=== PATIENT | female | born 1965 | race Caucasian/White ===

== ENCOUNTER → 2017-05-14 | Outpatient (CLI) | payer BC ==
--- NOTE | 2017-05-15 09:07 | MAM ---
EXAM DESCRIPTION: 3D Screening BILATERAL CLINICAL HISTORY: 51 yearsFemaleSCREENING no complaints. No family history of breast cancer. Premenopausal.. COMPARISON: Not yet available. No prior reports available. TECHNIQUE: Bilateral CC and MLO projection full-field images, 3-D tomosynthesis digital mammographic technique. Also bilateral synthesized CC/ MLO full-field images. CAD not utilized. FINDINGS: The breast parenchymal density pattern is: Scattered areas of fibroglandular density. No skin thickening or nipple retraction bilateral solitary microcalcifications. Bilateral axillary lymph nodes. Bilateral intramammary lymph nodes. Questionable mass with partially circumscribed and partially indistinct margins in the lower outer quadrant of the middle third of the left breast at the 500 clock position. Better defined on the CC projection. 6 cm from the nipple. Questionable focal asymmetry in the 1200 clock position of the middle third of the left breast. 6 cm from the nipple o definite calcifications. No focal, stellate mass or density, focal asymmetry , and no suspicious microcalcifications right breast. IMPRESSION: BI-RADS CATEGORY: 0 - INCOMPLETE- Need prior mammograms/other imaging for comparison. FOLLOW-UP: Compare to prior breast imaging when available. Written communication concerning the IMPRESSION and Follow-up, will be mailed to the patient and referring health care provider. Electronically signed by: Quincy Sommers MD 05/15/2017 9:05 AM CDT
== END | disposition home or self-care (01) ==
LOC: MAMMO 08:29
PROVIDERS: ATTEND Family Medicine
DX: Z12.31 Encounter for screening mammogram for malignant neoplasm of breast (principal)
CPT/HCPCS: 77063; G0202

== ENCOUNTER → 2017-07-27 | Outpatient (CLI) | payer BC ==
--- NOTE | 2017-07-28 15:26 | RAD ---
EXAM DESCRIPTION: Cervical Spine,3 Views CLINICAL HISTORY: 51 years Female, CERVICOBRACHIAL SYNDROME COMPARISON: None. FINDINGS: Three views of the cervical spine demonstrate mild degenerative disc changes at C6-7 with anterior spurring and minimal disc space narrowing. Modest bilateral facet arthrosis is evident on the AP view. The odontoid is intact. Normal alignment of the spine with loss of normal lordosis is noted. IMPRESSION: Mild degenerative changes of the cervical spine. Electronically signed by: Declan Garcia MD 07/28/2017 3:25 PM [facility]
== END ==
LOC: RAD 15:22
PROVIDERS: ATTEND Chiropractor
DX: M53.1 Cervicobrachial syndrome (principal)

== ENCOUNTER → 2018-10-14 | Outpatient (CLI) | payer BC | LOC: MAMMO 11:08 | PROVIDERS: ATTEND General Practice | DX: Z12.31 Encounter for screening mammogram for malignant neoplasm of breast (principal) | CPT/HCPCS: 77063; G0202 ==

== ENCOUNTER → 2020-06-05 | Outpatient (CLI) | payer BC, OTHER ==
--- NOTE | 2020-06-07 20:53 | MAM ---
EXAM DESCRIPTION: 3D Screening BILATERAL : Digital Mammography. CLINICAL HISTORY: 54 years Female ANNUAL SCREENING .. No complaints and no family history of breast cancer. Menarche age 13. Childbirth age 19. Menopause age 52. No HRT. . Lifetime risk of developing breast cancer (Tyrer-Cuzick model)(%): 6.6. COMPARISON: Bilateral screening digital breast tomosynthesis September 2018 bilateral screening 2-D digital examination April 2017. TECHNIQUE: Bilateral CC and MLO projection full-field images, digital tomosynthesis mammographic technique. Bilateral digital 2-D full-field MLO images. CAD available for 2-D images. FINDINGS: The breast parenchymal density pattern is: Scattered areas of fibroglandular density. No skin thickening or nipple retraction. Axillary nodes. Solitary microcalcifications. Coarse calcifications. No new focal, stellate mass or density, focal asymmetry , and no suspicious microcalcifications bilaterally. Stable mammograms compared to prior study. IMPRESSION: Benign exam. BIRAD CATEGORY: 2 BENIGN FINDINGS. RECOMMENDATIONS: FOLLOW UP: Routine digital bilateral mammographic screening, one year interval from May 2020. Written communication explaining the IMPRESSION and follow-up, will be mailed to the patient and referring health care provider. According to the [employer], yearly mammograms are recommended starting at age 40 and continuing as long as a woman is in good health. Any breast change noted on a breast self-exam should be reported promptly to the patient's healthcare provider. Breast MRI is recommended for women with an approximately 20-25% or greater lifetime risk of breast cancer, including women with a strong family history of breast or ovarian cancer and women who have been treated for Hodgkin's disease. A negative mammographic report should not delay tissue diagnosis in patients with significant clinical history or physical findings. Extremely dense breast tissue limits the sensitivity of digital mammography. Electronically signed by: Quincy Sommers MD 06/07/2020 8:51 PM CDT
== END ==
LOC: MAMMO 14:38
PROVIDERS: ATTEND General Practice
DX: Z12.31 Encounter for screening mammogram for malignant neoplasm of breast (principal)